=== PATIENT | female | born 1935 | race Caucasian/White ===

== ENCOUNTER 2016-11-22 07:06 | Outpatient (CLI) | payer MEDICARE ==
[2016-11-22 10:48] LABS: BASOPHILS # (AUTO) 0.1 10^3/uL (0.0-0.1); BASOPHILS % (AUTO) 1.2 %; EOSINOPHILS # (AUTO) 0.2 10^3/uL (0.0-0.7); EOSINOPHILS % (AUTO) 3.7 %; HGB - HEMOGLOBIN 12.2 g/dL (12.0-16.0); LYMPHOCYTES # (AUTO) 0.8 10^3/uL (1.5-3.5); LYMPHOCYTES % (AUTO) 14.7 %; MEAN CORPUSCULAR HGB CONC 33.9 g/dL (32.0-36.0); MEAN CORPUSCULAR VOLUME 88.6 fL (81.0-99.0); MEAN PLATELET VOLUME 8.3 fL (7.9-10.8); MONOCYTES # (AUTO) 0.7 10^3/uL (0.0-1.0); MONOCYTES % (AUTO) 12.1 %; NEUTROPHILS # (AUTO) 3.7 10^3/uL (1.5-6.6); NEUTROPHILS % (AUTO) 68.3 %; RED BLOOD COUNT 4.07 10^6/uL (4.20-5.40); RED CELL DISTRIBUTION WIDTH 13.4 % (12.0-15.0); UNCORRECTED WHITE BLOOD COUNT 5.5 x10^3/uL; WHITE BLOOD COUNT 5.5 x10^3/uL (4.8-10.8)
[2016-11-22 11:06] LABS: ALBUMIN/GLOBULIN RATIO 1.3 (1.0-2.2); BILIRUBIN,TOTAL 0.5 mg/dL (0.2-1.0); BUN - BLOOD UREA NITROGEN 17 mg/dL (6-20); CALCIUM 9.8 mg/dL (8.5-10.3); CARBON DIOXIDE - CO2 27 mmol/L (21-32); CHLORIDE 105 mmol/L (101-111); CHOL/HDL RATIO 2.1 (<4.4); CHOLESTEROL 161 mg/dL; CREATININE 0.8 mg/dL (0.4-1.0); GFR - MDRD 69 (>89); GLUCOSE 106 mg/dL (70-100); HDL CHOLESTEROL 76 mg/dL; LDL/HDL RATIO 0.9 (<4.4); POTASSIUM 3.9 mmol/L (3.5-5.0); SODIUM 140 mmol/L (135-145); TOTAL PROTEIN 7.3 g/dL (6.7-8.2); TRIGLYCERIDES 80 mg/dL; VLDL CHOLESTEROL 16 mg/dL
[2016-11-23 08:03] LABS: TEST RESULT REPORT (())
== END 2016-11-22 07:07 | disposition home or self-care (01) ==
LOC: LAB.F 07:06
PROVIDERS: ATTEND Family Medicine
DX: Z00.00 Encounter for general adult medical examination without abnormal findings (principal); I10 Essential (primary) hypertension; E55.9 Vitamin D deficiency, unspecified; R53.83 Other fatigue
CPT/HCPCS: 36415; 80053; 80061; 81599; 82306; 85025

== ENCOUNTER 2017-01-10 13:06 | Outpatient (CLI) | payer MEDICARE ==
[2017-01-10 19:29] LABS: BILIRUBIN,URINE NEGATIVE (NEGATIVE); PH,URINE 6.5 PH (5.0-7.5)
[2017-01-10 20:42] LABS: UR CULTURE IF IND INDICATED
== END 2017-01-10 13:07 | disposition home or self-care (01) ==
LOC: LAB.F 13:06
PROVIDERS: ATTEND Physician Assistant Medical
DX: R53.83 Other fatigue (principal)
CPT/HCPCS: 36415; 81001; 84443; 87086

== ENCOUNTER 2017-04-20 15:14 | Outpatient (CLI) | payer MEDICARE | END 2017-04-20 15:15 | disposition home or self-care (01) | LOC: LAB.R 15:14 | PROVIDERS: ATTEND Internal Medicine | DX: N30.00 Acute cystitis without hematuria (principal) | CPT/HCPCS: 87086 ==

== ENCOUNTER 2017-10-25 14:16 | Outpatient (CLI) | payer MEDICARE | END 2017-10-25 14:17 | disposition home or self-care (01) | LOC: LAB.R 14:16 | PROVIDERS: ATTEND Family Medicine | DX: N39.0 Urinary tract infection, site not specified (principal) | CPT/HCPCS: 87077; 87086 ==

== ENCOUNTER 2017-11-06 09:45 | Outpatient (CLI) | payer MEDICARE ==
[2017-11-06 17:34] LABS: BILIRUBIN,URINE NEGATIVE (NEGATIVE); GLUCOSE, URINE (UA) NEGATIVE (NEGATIVE); KETONES,URINE (UA) NEGATIVE (NEGATIVE); LEUKOCYTE ESTERASE, URINE SMALL (NEGATIVE); NITRITE,URINE NEGATIVE (NEGATIVE); OCCULT BLOOD,URINE NEGATIVE (NEGATIVE); PH,URINE 5.5 PH (5.0-7.5); PROTEIN,URINE NEGATIVE (NEGATIVE); UROBILINOGEN,URINE 0.2 (NORMAL) E.U./dL (NORMAL)
[2017-11-06 17:35] LABS: CLARITY,URINE HAZY (CLEAR)
[2017-11-06 18:49] LABS: BACTERIA,URINE Few /HPF (None Seen); CRYSTALS,URINE 11-25 Ca Oxalate /LPF; RBC,URINE None Seen /HPF (0-5); SQUAMOUS EPITHELIAL CELL,UR MANY Squamous (<= Few)
== END 2017-11-06 09:46 | disposition home or self-care (01) ==
LOC: LAB.F 09:45
PROVIDERS: ATTEND Physician Assistant Medical
DX: N39.0 Urinary tract infection, site not specified (principal)
CPT/HCPCS: 81001; 87086

== ENCOUNTER 2018-01-08 11:08 | Outpatient (CLI) | payer MEDICARE ==
[2018-01-08 17:47] LABS: BASOPHILS # (AUTO) 0.1 10^3/uL (0.0-0.1); EOSINOPHILS # (AUTO) 0.1 10^3/uL (0.0-0.7); EOSINOPHILS % (AUTO) 1.6 %; HGB - HEMOGLOBIN 12.1 g/dL (12.0-16.0); LYMPHOCYTES # (AUTO) 0.6 10^3/uL (1.5-3.5); LYMPHOCYTES % (AUTO) 10.2 %; MEAN CORPUSCULAR HEMOGLOBIN 30.5 pg (27.0-31.0); MEAN CORPUSCULAR HGB CONC 32.9 g/dL (32.0-36.0); MEAN CORPUSCULAR VOLUME 92.6 fL (81.0-99.0); MEAN PLATELET VOLUME 8.4 fL (7.9-10.8); MONOCYTES # (AUTO) 0.6 10^3/uL (0.0-1.0); MONOCYTES % (AUTO) 10.5 %; NEUTROPHILS # (AUTO) 4.2 10^3/uL (1.5-6.6); NEUTROPHILS % (AUTO) 76.7 %; PLT - PLATELET COUNT 201 10^3/uL (130-450); RED BLOOD COUNT 3.97 10^6/uL (4.20-5.40); RED CELL DISTRIBUTION WIDTH 14.2 % (12.0-15.0); WHITE BLOOD COUNT 5.5 x10^3/uL (4.8-10.8)
[2018-01-08 18:35] LABS: ALBUMIN 4.1 g/dL (3.2-5.5); ALBUMIN/GLOBULIN RATIO 1.3 (1.0-2.2); BILIRUBIN,TOTAL 0.4 mg/dL (0.2-1.0); CALCIUM 9.5 mg/dL (8.5-10.3); CREATININE 0.7 mg/dL (0.4-1.0); TOTAL PROTEIN 7.2 g/dL (6.7-8.2)
== END 2018-01-08 11:09 | disposition home or self-care (01) ==
LOC: LAB.F 11:08
PROVIDERS: ATTEND Physician Assistant Medical
DX: I10 Essential (primary) hypertension (principal); E55.9 Vitamin D deficiency, unspecified; R53.83 Other fatigue
CPT/HCPCS: 36415; 80053; 82306; 84443; 85025

== ENCOUNTER 2018-01-15 09:08 | Outpatient (CLI) | payer MEDICARE ==
--- NOTE | 2018-01-15 12:07 | DEXA Report ---
Procedure Date: 01/15/2018 Accession Number: [id number] / [id number] Procedure: DEX - Dexa Spine and/or Hip CPT Code: FULL RESULT: EXAM: Dexa Spine and/or Hip DATE: 01/15/2018 10:55 AM CLINICAL HISTORY: ENCOUNTER FOR SCREENING FOR OSTEOPOROSIS,AORTIC ST TECHNIQUE: Dual energy x-ray absorptiometry (DXA) was performed on a [employer] System. Regions measured are the AP Spine, femoral neck, and if needed forearm. COMPARISON: None. In accordance with the International Society for Clinical Densitometry (ISCD) guidelines, data from previous exams may be reanalyzed using current recommendations and techniques. This is done to allow a more accurate basis for comparison with the current study. FINDINGS: The data for the lumbar spine is as follows: BMD (g/cm/cm) T-SCORE Z-SCORE REGION L1 0.915 -1.8 -0.4 L2 1.024 -1.5 -0.1 L3 1.115 -0.7 0.7 L4 1.190 -0.1 1.3 TOTAL 1.081 -0.8 0.5 NOTE: All evaluable vertebrae are used for classification The data for the hip is as follows: BMD (g/cm/cm) T-SCORE Z-SCORE REGION Neck 0.751 -2.1 -0.1 TOTAL 0.817 -1.5 0.3 NOTE: The femoral neck or total proximal femur, whichever is lowest, is used for classification. IMPRESSION: THE WHO CLASSIFICATION BASED ON THE INTERNATIONAL REFERENCE STANDARD IS OSTEOPOROSIS. THE FRACTURE RISK IS INCREASED. RECOMMENDATION: Patients with diagnosis of osteoporosis or osteopenia should have regular bone mineral density assessment. For those eligible for Medicare, routine testing is allowed once every 2 years. Testing frequency can be increased for patients who have rapidly progressing disease or for those who are receiving medical therapy to restore bone mass. COMMENT: World Health Organization (WHO) definitions for osteoporosis and osteopenia: NORMAL BMD: T-score at -1.0 or higher, fracture risk is low OSTEOPENIA BMD: T-score between -1.0 and -2.5, fracture risk is increased. OSTEOPOROSIS BMD: T-score at -2.5 or lower, fracture risk is high. National Osteoporosis Foundation recommends: 1. Obtain adequate dietary calcium (at least 1200 mg per day) and vitamin D (400-800 international units per day). 2. Participate, as appropriate, in regular weightbearing and muscle-strengthening exercise. 3. Avoid tobacco use and reduce alcohol and caffeine intake. 4. For more detailed information see the website at www.NOF.org.
== END 2018-01-15 09:09 | disposition home or self-care (01) ==
LOC: DI 09:08
PROVIDERS: ATTEND Physician Assistant Medical
DX: Z13.820 Encounter for screening for osteoporosis (principal); M81.0 Age-related osteoporosis without current pathological fracture; I35.0 Nonrheumatic aortic (valve) stenosis; R53.83 Other fatigue
CPT/HCPCS: 77080; 93306

== ENCOUNTER 2019-01-01 07:57 | Outpatient (CLI) | payer MEDICARE ==
[2019-01-01 18:10] LABS: BASOPHILS # (AUTO) 0.1 10^3/uL (0.0-0.1); BASOPHILS % (AUTO) 1.3 %; EOSINOPHILS # (AUTO) 0.1 10^3/uL (0.0-0.7); HGB - HEMOGLOBIN 12.1 g/dL (12.0-16.0); LYMPHOCYTES # (AUTO) 0.6 10^3/uL (1.5-3.5); LYMPHOCYTES % (AUTO) 10.7 %; MEAN CORPUSCULAR HEMOGLOBIN 29.5 pg (27.0-31.0); MEAN CORPUSCULAR HGB CONC 30.5 g/dL (32.0-36.0); MEAN CORPUSCULAR VOLUME 96.8 fL (81.0-99.0); MEAN PLATELET VOLUME 10.5 fL (7.9-10.8); MONOCYTES # (AUTO) 0.6 10^3/uL (0.0-1.0); MONOCYTES % (AUTO) 11.6 %; NEUTROPHILS # (AUTO) 3.9 10^3/uL (1.5-6.6); NEUTROPHILS % (AUTO) 75.2 %; PLT - PLATELET COUNT 201 10^3/uL (130-450); RED CELL DISTRIBUTION WIDTH 13.6 % (12.0-15.0); WHITE BLOOD COUNT 5.2 x10^3/uL (4.8-10.8)
[2019-01-01 19:02] LABS: ALBUMIN 4.7 g/dL (3.2-5.5); ALBUMIN/GLOBULIN RATIO 1.5 (1.0-2.2); BILIRUBIN,TOTAL 0.7 mg/dL (0.2-1.0); CREATININE 0.9 mg/dL (0.4-1.0); TOTAL PROTEIN 7.9 g/dL (6.7-8.2)
== END 2019-01-01 07:58 | disposition home or self-care (01) ==
LOC: LAB.F 07:57
PROVIDERS: ATTEND Physician Assistant Medical
DX: E53.8 Deficiency of other specified B group vitamins (principal); I10 Essential (primary) hypertension
CPT/HCPCS: 36415; 80053; 82607; 85025

== ENCOUNTER 2019-02-12 10:17 | Outpatient (CLI) | payer MEDICARE ==
--- NOTE | 2019-02-13 15:26 | XRAY Report ---
Reason: LEG NUMBNESS,RIGHT Procedure Date: 02/12/2019 Accession Number: [id number] / [id number] Procedure: XR - Lumbar Spine Complete CPT Code: FULL RESULT: EXAM: LUMBOSACRAL SPINE RADIOGRAPHY EXAM DATE: 02/12/2019 10:55 AM. CLINICAL HISTORY: Leg numbness, right. COMPARISONS: None. TECHNIQUE: 3 views. FINDINGS: Alignment: Approximately 10 degrees of dextroscoliosis apex L2-L3 disk level. Bones: Five [id number] lumbar vertebral bodies are present. No fractures or bone lesions. Disks: There is mild to moderate anterior and lateral marginal osteophytes at all disk levels. Mild disk space narrowing at L4-L5. Facets: Mild facet arthrosis on the right at L5-S1 Sacroiliac Joints: Unremarkable. Soft Tissues: Normal. The visualized bowel gas pattern is normal. IMPRESSION: Multilevel degenerative disk changes as described. No fracture. RADIA
== END 2019-02-12 10:18 | disposition home or self-care (01) ==
LOC: DI 10:17
PROVIDERS: ATTEND Registered Nurse
DX: M51.36 Other intervertebral disc degeneration, lumbar region (principal); M47.817 Spondylosis without myelopathy or radiculopathy, lumbosacral region
CPT/HCPCS: 72110

== ENCOUNTER 2020-11-11 22:21 | Emergency (ER) | payer MEDICARE ==
[2020-11-11] MEDS ORDERED: OXYMETAZOLINE HCL 100 SPRAYS BOTTLE NAS STA (22:38)
[2020-11-12 00:07] VITALS: BP 163/67
--- NOTE | 2020-11-12 00:17 | ED Physician Documentation ---
PD HPI HEENT - Stated complaint Stated Complaint: NOSE BLEED - Chief complaint Chief Complaint: Heent - History obtained from History obtained from: Patient, Family - History of Present Illness Timing - onset: How many weeks ago (2) Timing - duration: Weeks (2) Timing - details: Gradual onset, Still present, Waxing and waning Location: Nose Improves: Other (pressure) Associated symptoms: Congestion, Rhinorrhea. No: Fever, Trismus, Unable to swallow, Swollen nodes, Facial swelling, Headache, Cough Similar symptoms before: Has not had sx before Recently seen: Not recently seen - Additional information Additional information: Previously well 85-year-old female has developed a nosebleed and she has had this nosebleed off and on for the past week and today she was unable to get this bleeding to stop and she is come to the emergency department for treatment. At the time of my evaluation her bleeding has stopped. She does have a history of hypertension. Review of Systems Constitutional: denies: Fever Eyes: denies: Decreased vision Ears: denies: Ear pain Nose: reports: Rhinorrhea / runny nose, Congestion, Epistaxis Throat: denies: Sore throat Cardiac: denies: Chest pain / pressure, Palpitations Respiratory: denies: Dyspnea, Cough GI: denies: Abdominal Pain, Nausea, Vomiting : denies: Dysuria, Frequency PD PAST MEDICAL HISTORY - Past Medical History Past Medical History: Yes Cardiovascular: Hypertension Respiratory: None Endocrine/Autoimmune: None GI: GERD : Chronic bladder infection HEENT: Other Psych: None Musculoskeletal: None Derm: None - Past Surgical History 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, 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 - Present Medications Home Medications: Ambulatory Orders Medication Instructions Recorded Confirmed Lisinopril 1 mg ORAL DAILY 07/30/14 07/31/14 Ascorbic Acid [Vitamin C] 1,000 mg PO DAILY 07/31/14 07/31/14 Cranberry 500 mg PO DAILY 07/31/14 07/31/14 Multivitamin [Multivitamins] 1 each PO DAILY 07/31/14 07/31/14 - Allergies Allergies/Adverse Reactions: Allergies Allergy/AdvReac Type Severity Reaction Status Date / Time Penicillins AdvReac Unknown Verified 07/30/14 14:31 - Social History Does the pt smoke?: No Smoking Status: Never smoker Does the pt drink ETOH?: No Does the pt have substance abuse?: No - Immunizations Immunizations are current?: Yes - POLST Patient has POLST: No PD ED PE NORMAL - Vitals Vital signs reviewed: Yes (Hypertensive seems artifactually elevated diastolic ) - General General: No acute distress, Well developed/nourished - HEENT HEENT: Atraumatic, PERRL, EOMI, Other (There does appear to be bleeding from the anterior septum inferiorly on the right side that is now resolved and there is only the appearance of a blush to superficially denuded mucosa.) - Respiratory Respiratory: No respiratory distress - Derm Derm: Normal color, Warm and dry, No rash - Extremities Extremities: No deformity, No edema - 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, No motor deficit, No sensory deficit, Normal speech Eye Opening: Spontaneous Motor: Obeys Commands Verbal: Oriented GCS Score: 15 - Psych Psych: Normal mood, Normal affect Results - Vitals Vitals: Vital Signs - 24 hr 11/11/20 11/12/20 22:29 00:06 Temperature 36.3 C L 36.5 C Heart Rate 84 68 Respiratory 17 16 Rate Blood Pressure 169/143 H 163/67 H O2 Saturation 99 97 Oxygen O2 Source Room air PD MEDICAL DECISION MAKING - ED course Complexity details: considered differential, d/w patient, d/w family ED course: 85-year-old female with epistaxis from the right nares has bleeding controlled with the time she presents to the emergency department she is given oxymetazoline and reexamined and there are no additional findings. The patient has resolution of her bleeding here in the emergency department and no further aggressive treatment is administered. She came into the emergency department with a triage diastolic blood pressure of 143 this appears erroneous as subsequent readings showed a diastolic of 67 . Departure - Departure Disposition: 01 Home, Self Care Clinical Impression: Epistaxis Condition: Stable Instructions: ED Nosebleed Follow-Up: Katharina Mauricio ARNP [Credentialed Staff Provider] - Comments: Daya, today it appears your nose is bleeding from the anterior septum. This is just inside the nose and it looks like there is some raw mucosa. This is likely secondary to nasal allergies. The recommendation is to put a slight amount of Vaseline over this area and if you develop bleeding again use the oxymetazoline on that you have been given and clamp your nose. If you are unable to control your bleeding we are here 24 hours/day. Discharge Date/Time: 11/12/20 00:19
== END 2020-11-12 00:19 | disposition home or self-care (01) ==
LOC: ED 22:21
DX: R04.0 Epistaxis (principal); I10 Essential (primary) hypertension
CPT/HCPCS: 99282; 99284; A9270

== ENCOUNTER 2020-12-04 07:54 | Outpatient (CLI) | payer MEDICARE ==
[2020-12-04 14:48] LABS: BASOPHILS % (AUTO) 1.9 %; EOSINOPHILS % (AUTO) 1.9 %; HCT - HEMATOCRIT 37.6 % (37.0-47.0); HGB - HEMOGLOBIN 11.7 g/dL (12.0-16.0); LYMPHOCYTES % (AUTO) 13.9 %; MEAN CORPUSCULAR HEMOGLOBIN 29.9 pg (27.0-31.0); MEAN CORPUSCULAR HGB CONC 31.1 g/dL (32.0-36.0); MEAN CORPUSCULAR VOLUME 96.2 fL (81.0-99.0); MEAN PLATELET VOLUME 10.6 fL (7.9-10.8); MONOCYTES % (AUTO) 11.6 %; NEUTROPHILS % (AUTO) 70.7 %; PLT - PLATELET COUNT 165 10^3/uL (130-450); RED BLOOD COUNT 3.91 10^6/uL (4.20-5.40); RED CELL DISTRIBUTION WIDTH 13.5 % (12.0-15.0); WHITE BLOOD COUNT 4.2 x10^3/uL (4.8-10.8)
[2020-12-04 15:12] LABS: ABNORMAL LYMPHS % (MANUAL) 0 %
[2020-12-04 15:21] LABS: ALBUMIN 4.6 g/dL (3.2-5.5); ALBUMIN/GLOBULIN RATIO 1.6 (1.0-2.2); ALKALINE PHOSPHATASE 54 IU/L (42-121); ALT ALANINE AMINOTRANSFERASE 20 IU/L (10-60); AST ASPARTATE AMINOTRANSFERASE 26 IU/L (10-42); BILIRUBIN,TOTAL 0.8 mg/dL (0.2-1.0); BUN - BLOOD UREA NITROGEN 16 mg/dL (6-20); CALCIUM 9.8 mg/dL (8.5-10.3); CARBON DIOXIDE - CO2 29 mmol/L (21-32); CHLORIDE 105 mmol/L (101-111); CHOLESTEROL 180 mg/dL; CREATININE 0.7 mg/dL (0.4-1.0); GFR - MDRD 80 (>89); GLUCOSE 101 mg/dL (70-100); HDL CHOLESTEROL 90 mg/dL; LDL CHOLESTEROL,CALCULATED 74 mg/dL; LDL/HDL RATIO 0.8 (<4.4); SODIUM 142 mmol/L (135-145); TOTAL PROTEIN 7.4 g/dL (6.7-8.2); TRIGLYCERIDES 80 mg/dL; VLDL CHOLESTEROL 16 mg/dL
[2020-12-04 15:32] LABS: BAND NEUTROPHILS % (MANUAL) 2 %; EOSINOPHILS # (MANUAL) 0.2 10^3/uL (0-0.7); LYMPHOCYTES # (MANUAL) 0.7 10^3/uL (1.5-3.5); LYMPHOCYTES % (MANUAL) 16 %; MONOCYTES # (MANUAL) 0.6 10^3/uL (0.0-1.0); NEUTROPHILS # (MANUAL) 2.7 10^3/uL (1.5-6.6)
[2020-12-04 15:59] LABS: PLATELET ESTIMATE, MANUAL NORMAL (130-450,000) (NORMAL); PLATELET MORPHOLOGY NORMAL APPEARANCE (NORMAL); RBC MORPHOLOGY (MULTIPLE) NORMAL APPEARANCE (NORMAL)
[2020-12-04 16:00] LABS: DIFFERENTIAL COMMENT MANUAL DIFFERENTIAL; WBC MORPHOLOGY (MULTIPLE) NORMAL APPEARANCE (NORMAL)
== END 2020-12-04 07:55 | disposition home or self-care (01) ==
LOC: LAB.S 07:54
PROVIDERS: ATTEND Internal Medicine
DX: I10 Essential (primary) hypertension (principal)
CPT/HCPCS: 36415; 80053; 80061; 83721; 85025

== ENCOUNTER 2020-12-24 09:15 | Outpatient (CLI) | payer MEDICARE ==
[2020-12-24 20:09] LABS: FECAL OCCULT BLOOD (FIT) NEGATIVE (NEGATIVE)
== END 2020-12-24 23:59 | disposition home or self-care (01) ==
LOC: LAB.S 09:15
PROVIDERS: ATTEND Internal Medicine
DX: Z12.11 Encounter for screening for malignant neoplasm of colon (principal)
CPT/HCPCS: 82274

== ENCOUNTER 2021-01-25 18:50 | Outpatient (CLI) | payer MEDICARE ==
[2021-01-25 20:12] LABS: BASOPHILS # (AUTO) 0.1 10^3/uL (0.0-0.1); BASOPHILS % (AUTO) 0.9 %; EOSINOPHILS # (AUTO) 0.4 10^3/uL (0.0-0.7); EOSINOPHILS % (AUTO) 6.5 %; HCT - HEMATOCRIT 36.3 % (37.0-47.0); HGB - HEMOGLOBIN 11.3 g/dL (12.0-16.0); LYMPHOCYTES # (AUTO) 0.7 10^3/uL (1.5-3.5); LYMPHOCYTES % (AUTO) 10.3 %; MEAN CORPUSCULAR HEMOGLOBIN 29.5 pg (27.0-31.0); MEAN CORPUSCULAR HGB CONC 31.1 g/dL (32.0-36.0); MEAN CORPUSCULAR VOLUME 94.8 fL (81.0-99.0); MEAN PLATELET VOLUME 10.3 fL (7.9-10.8); MONOCYTES # (AUTO) 0.7 10^3/uL (0.0-1.0); MONOCYTES % (AUTO) 10.6 %; NEUTROPHILS # (AUTO) 4.6 10^3/uL (1.5-6.6); NEUTROPHILS % (AUTO) 71.5 %; PLT - PLATELET COUNT 191 10^3/uL (130-450); RED BLOOD COUNT 3.83 10^6/uL (4.20-5.40); RED CELL DISTRIBUTION WIDTH 13.4 % (12.0-15.0); WHITE BLOOD COUNT 6.5 x10^3/uL (4.8-10.8)
== END 2021-01-25 23:59 | disposition home or self-care (01) ==
LOC: LAB.S 18:50
PROVIDERS: ATTEND Physician Assistant Medical
DX: R04.0 Epistaxis (principal); R42 Dizziness and giddiness
CPT/HCPCS: 36415; 85025

== ENCOUNTER 2021-01-26 00:42 | Outpatient (CLI) | payer MEDICARE | END 2021-01-26 00:43 | disposition critical access hospital (66) | LOC: EMS 00:42 | DX: R04.0 Epistaxis (principal) | CPT/HCPCS: A0425; A0429 ==

== ENCOUNTER 2021-01-26 01:24 | Emergency (ER) | payer MEDICARE ==
[2021-01-26] MEDS ORDERED: OXYMETAZOLINE HCL 100 SPRAYS BOTTLE NAS STA (01:30)
[2021-01-26] MEDS ORDERED: BACITRACIN ZINC OINT 1 PACKET TOP STA (01:41)
[2021-01-26] MEDS ORDERED: TRANEXAMIC ACID 1,000 MG/10 ML VIAL NAS STA (01:42)
[2021-01-26] MEDS ORDERED: SILVER NITRATE APPLICATOR TOP STA (02:04)
[2021-01-26] MEDS ORDERED: LIDOCAINE JELLY 2% 6 ML JEL.PF.APP TOP STA (02:05)
--- NOTE | 2021-01-26 02:26 | ED Physician Documentation ---
History of Present Illness - Stated complaint Stated Complaint: EPISTAXIS - Chief complaint Chief Complaint: Heent - History obtained from History obtained from: Patient - Additonal information Additional information: 85-year-old woman brought in by EMS for recurrent epistaxis over the past 2 years, worsening this week. patient was seen in [facility] and had nasal cautery. they attempted rhinorocket placement but she could not tolerate therefore it was taken out. patient went home and then had recurrence of nosebleed so called 911. denies trauma, blood thinners, nose picking. 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 - Present Medications Home Medications: Ambulatory Orders Medication Instructions Recorded Confirmed Lisinopril 1 mg ORAL DAILY 07/30/14 07/31/14 Ascorbic Acid [Vitamin C] 1,000 mg PO DAILY 07/31/14 07/31/14 Cranberry 500 mg PO DAILY 07/31/14 07/31/14 Multivitamin [Multivitamins] 1 each PO DAILY 07/31/14 07/31/14 Cholecalciferol (Vitamin D3) mg ORAL DAILY 01/26/21 [Vitamin D3] - Allergies Allergies/Adverse Reactions: Allergies Allergy/AdvReac Type Severity Reaction Status Date / Time Penicillins AdvReac Unknown Verified 01/26/21 01:50 - Social History Does the pt smoke?: No Smoking Status: Never smoker Does the pt drink ETOH?: No Does the pt have substance abuse?: No - Immunizations Immunizations are current?: Yes - POLST Patient has POLST: No PD ED PE NORMAL - Vitals Vital signs reviewed: Yes - General General: Alert and oriented X 3, No acute distress, Well developed/nourished - HEENT HEENT: Atraumatic, PERRL, EOMI, Other (R nare with dried blood. L nare clear. no NSH) - Derm Derm: Normal color, Warm and dry - Neuro Neuro: Alert and oriented X 3 - Psych Psych: Normal mood, Normal affect Results - Vitals Vitals: Vital Signs - 24 hr 01/26/21 01:41 Temperature 36.1 C L Heart Rate 79 Respiratory 18 Rate Blood Pressure 160/57 H O2 Saturation 97 Oxygen O2 Source Oxymask Procedures - Epistaxis Site: Right, Anterior Preparation: Afrin, Clamp / pressure applied Treatment: Ant post rhinorocket Other: Observed - no bleeding, Pt tolerated well, O2 sat WNL, Referred to ENT PD MEDICAL DECISION MAKING - ED course ED course: Epistaxis stopped with direct pressure and Afrin nasal spray. update: restarted. R rhinorocket placed with relief of bleeding. return precautions given. patient will f/u for removal tomorrow. Departure - Departure Disposition: 01 Home, Self Care Clinical Impression: Epistaxis Condition: Stable Instructions: ED Nosebleed Follow-Up: DEN CUELLAR MD [Physician No Access] - Comments: You are seen in the emergency department for a nosebleed. A Rhino Rocket was placed in your right nose that needs to be taken out on January 27 at the [place] [facility]in [facility] or another urgent care. Please return to the emergency department if you have new or worsening symptoms or other concerns prior to that.
[2021-01-26 02:36] VITALS: BP 160/57
== END 2021-01-26 03:43 | disposition home or self-care (01) ==
LOC: EDUNIT# → ED 01:24 → SUPCPDRO 01:24 → ED 03:43
DX: R04.0 Epistaxis (principal); I10 Essential (primary) hypertension
CPT/HCPCS: 30901; 99283; A9270

== ENCOUNTER 2021-02-02 08:59 | Outpatient (CLI) | payer MEDICARE | END 2021-02-02 09:00 | disposition home or self-care (01) | LOC: DI 08:59 | PROVIDERS: ATTEND Internal Medicine | DX: I35.0 Nonrheumatic aortic (valve) stenosis (principal); I27.20 Pulmonary hypertension, unspecified | CPT/HCPCS: 93306 ==

== ENCOUNTER 2021-02-20 11:51 | Outpatient (CLI) | payer MEDICARE ==
[2021-02-20 15:22] LABS: PT - PROTHROMBIN TIME 11.4 secs (9.9-12.6)
== END 2021-02-20 11:52 | disposition home or self-care (01) ==
LOC: LAB.S 11:51
PROVIDERS: ATTEND Internal Medicine
DX: A07.1 Giardiasis [lambliasis] (principal); R23.8 Other skin changes
CPT/HCPCS: 36415; 85610

== ENCOUNTER 2021-02-22 13:00 | Outpatient (CLI) | payer MEDICARE | END 2021-02-22 23:59 | disposition home or self-care (01) | LOC: LAB.S 13:00 | PROVIDERS: ATTEND Internal Medicine | DX: A07.1 Giardiasis [lambliasis] (principal) | CPT/HCPCS: 87329 ==

== ENCOUNTER 2021-04-19 13:00 | Outpatient (CLI) | payer MEDICARE ==
[2021-04-19 20:46] LABS: BILIRUBIN,URINE NEGATIVE (NEGATIVE); GLUCOSE, URINE (UA) NEGATIVE (NEGATIVE); KETONES,URINE (UA) NEGATIVE (NEGATIVE); LEUKOCYTE ESTERASE, URINE SMALL (NEGATIVE); NITRITE,URINE NEGATIVE (NEGATIVE); OCCULT BLOOD,URINE NEGATIVE (NEGATIVE); PROTEIN,URINE NEGATIVE (NEGATIVE); UROBILINOGEN,URINE 0.2 (NORMAL) E.U./dL (NORMAL)
[2021-04-19 20:48] LABS: CLARITY,URINE HAZY (CLEAR)
[2021-04-19 20:56] LABS: RBC,URINE 0-5 /HPF (0-5); SQUAMOUS EPITHELIAL CELL,UR FEW Squamous (<= Few)
[2021-04-19 20:57] LABS: BACTERIA,URINE Few /HPF (None Seen)
== END 2021-04-19 23:59 | disposition home or self-care (01) ==
LOC: LAB.S 13:00
PROVIDERS: ATTEND Emergency Medicine
DX: R30.0 Dysuria (principal)
CPT/HCPCS: 81001; 87086

== ENCOUNTER 2021-04-23 10:12 | Emergency (ER) | payer MEDICARE ==
[2021-04-23 13:05] LABS: BASOPHILS # (AUTO) 0.1 10^3/uL (0.0-0.1); BASOPHILS % (AUTO) 1.7 %; EOSINOPHILS # (AUTO) 0.1 10^3/uL (0.0-0.7); HCT - HEMATOCRIT 37.5 % (37.0-47.0); HGB - HEMOGLOBIN 11.6 g/dL (12.0-16.0); LYMPHOCYTES # (AUTO) 0.6 10^3/uL (1.5-3.5); MEAN CORPUSCULAR HEMOGLOBIN 29.5 pg (27.0-31.0); MEAN CORPUSCULAR HGB CONC 30.9 g/dL (32.0-36.0); MEAN CORPUSCULAR VOLUME 95.4 fL (81.0-99.0); MEAN PLATELET VOLUME 9.8 fL (7.9-10.8); MONOCYTES # (AUTO) 0.5 10^3/uL (0.0-1.0); MONOCYTES % (AUTO) 10.5 %; NEUTROPHILS # (AUTO) 3.4 10^3/uL (1.5-6.6); NEUTROPHILS % (AUTO) 73.6 %; PLT - PLATELET COUNT 160 10^3/uL (130-450); RED BLOOD COUNT 3.93 10^6/uL (4.20-5.40); RED CELL DISTRIBUTION WIDTH 13.7 % (12.0-15.0); WHITE BLOOD COUNT 4.6 x10^3/uL (4.8-10.8)
[2021-04-23 13:19] LABS: ALBUMIN 4.6 g/dL (3.2-5.5); ALBUMIN/GLOBULIN RATIO 1.4 (1.0-2.2); BILIRUBIN,TOTAL 0.9 mg/dL (0.2-1.0); CALCIUM 9.9 mg/dL (8.5-10.3); CREATININE 0.8 mg/dL (0.4-1.0); POTASSIUM 4.3 mmol/L (3.5-5.0); TOTAL PROTEIN 7.8 g/dL (6.7-8.2)
[2021-04-23 14:41] LABS: BILIRUBIN,URINE NEGATIVE (NEGATIVE); GLUCOSE, URINE (UA) NEGATIVE (NEGATIVE); KETONES,URINE (UA) NEGATIVE (NEGATIVE); LEUKOCYTE ESTERASE, URINE NEGATIVE (NEGATIVE); NITRITE,URINE NEGATIVE (NEGATIVE); OCCULT BLOOD,URINE TRACE-INTA (NEGATIVE); PROTEIN,URINE NEGATIVE (NEGATIVE); UROBILINOGEN,URINE 0.2 (NORMAL) E.U./dL (NORMAL)
[2021-04-23 14:42] LABS: CLARITY,URINE CLEAR (CLEAR)
--- NOTE | 2021-04-23 14:48 | ED Physician Documentation ---
History of Present Illness - Stated complaint Stated Complaint: FEMALE - Chief complaint Chief Complaint: UTI - Additonal information Additional information: 86-year-old female presents the emergency department for evaluation of concerns that she may have a urinary tract infection that is not responding to treatment as well as reported lower abdominal discomfort. She states that she Had developed some lower abdominal tenderness as well as some dysuria about 4 days ago. She was seen by Dr. Mortensen who ordered a urinalysis. She was started on a sulfa antibiotic on the . About an hour after taking it she had diarrhea therefore she stopped taking the sulfa and began taking amoxicillin 500 mg 3 times a day. Since then she feels like the dysuria is better but she still continues to have some softer nonbloody watery stools. She is reporting difficulty following up with her primary care provider. She does visit this emergency department with her who is also seeking care. She denies fevers, flank pain, vomiting CVA tenderness. No history of pyelonephritis. Patient's daughter states mom always gets urinary tract infections. Review of Systems Constitutional: denies: Fever, Chills Throat: reports: Reviewed and negative Cardiac: reports: Reviewed and negative Respiratory: reports: Reviewed and negative GI: reports: Abdominal Pain, Diarrhea. 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 - Present Medications Home Medications: Ambulatory Orders Medication Instructions Recorded Confirmed Lisinopril 1 mg ORAL DAILY 07/30/14 07/31/14 Ascorbic Acid [Vitamin C] 1,000 mg PO DAILY 07/31/14 07/31/14 Cranberry 500 mg PO DAILY 07/31/14 07/31/14 Multivitamin [Multivitamins] 1 each PO DAILY 07/31/14 07/31/14 Cholecalciferol (Vitamin D3) mg ORAL DAILY 01/26/21 [Vitamin D3] - Allergies Allergies/Adverse Reactions: Allergies Allergy/AdvReac Type Severity Reaction Status Date / Time Penicillins AdvReac Unknown Verified 04/23/21 10:28 - Social History Does the pt smoke?: No Smoking Status: Never smoker Does the pt drink ETOH?: No Does the pt have substance abuse?: No - Immunizations Immunizations are current?: Yes - POLST Patient has POLST: No PD ED PE NORMAL - General General: Alert and oriented X 3, No acute distress - HEENT HEENT: PERRL - Cardiac Cardiac: RRR, No murmur - Respiratory Respiratory: No respiratory distress, Clear bilaterally - Abdomen Abdomen: Normal bowel sounds, Soft, Non tender (I am unable to elicit any suprapubic flank or CVA tenderness. No guarding or rebound.) - Derm Derm: Normal color, Warm and dry, No rash - Extremities Extremities: No deformity - Neuro Neuro: Alert and oriented X 3 Eye Opening: Spontaneous Motor: Obeys Commands Verbal: Oriented GCS Score: 15 Results - Vitals Vitals: Vital Signs - 24 hr 04/23/21 10:14 Temperature 36.3 C L Heart Rate 67 Respiratory 16 Rate Blood Pressure 144/42 H O2 Saturation 98 Oxygen O2 Source Room air - Labs Labs: Laboratory Tests 04/23/21 04/23/21 04/23/21 13:00 13:00 13:50 WBC 4.6 L RBC 3.93 L Hgb 11.6 L Hct 37.5 MCV 95.4 MCH 29.5 MCHC 30.9 L RDW 13.7 Plt Count 160 MPV 9.8 Neut # (Auto) 3.4 Lymph # (Auto) 0.6 L [place] # (Auto) 0.5 Eos # (Auto) 0.1 Baso # (Auto) 0.1 Absolute Nucleated RBC 0.00 Nucleated RBC % 0.0 Sodium 140 Potassium 4.3 Chloride 103 Carbon Dioxide 29 Anion Gap 8.0 BUN 17 Creatinine 0.8 Estimated GFR (MDRD) 68 L Glucose 98 Calcium 9.9 Total Bilirubin 0.9 AST 30 ALT 22 Alkaline Phosphatase 56 Total Protein 7.8 Albumin 4.6 Globulin 3.2 Albumin/Globulin Ratio 1.4 Lipase 35 Urine Color YELLOW Urine Clarity CLEAR Urine pH 7.0 Ur Specific [place]aughters 1.015 Urine Protein NEGATIVE Urine Glucose (UA) NEGATIVE Urine Ketones NEGATIVE Urine Occult Blood TRACE-INTA Urine Nitrite NEGATIVE Urine Bilirubin NEGATIVE Urine Urobilinogen 0.2 (NORMAL) Ur Leukocyte Esterase NEGATIVE Ur Microscopic Review NOT INDICATED Urine Culture Comments NOT INDICATED PD MEDICAL DECISION MAKING - ED course Complexity details: reviewed results, re-evaluated patient, considered differential, d/w patient, d/w family ED course: This is a well-appearing 86-year-old female who presents the emergency department for evaluation which she believes is a urinary tract infection as well as diarrhea. Reported urinary discomfort 4 days ago. Was started on a sulfa 2 days ago but after 1 dose developed diarrhea therefore she began taking leftover amoxicillin 500 mg 3 times a day. Her urinary symptoms have improved but she still reports lower abdominal discomfort. On exam she appears remarkably well. No fevers hypotension or tachycardia. I was unable to elicit any abdominal tenderness. Screening labs were obtained and reassuringly there were is no acute abnormality. Her urine specimen was also without signs of infection. This was a catheterized specimen. Urine obtained on the through her primary care provider grew microbial lea likely a contaminant. No new antibiotics are indicated today. I have advised close follow-up with her primary care provider. Given the reassuring exam and labs no emergent CT imaging is indicated today. Return precautions were discussed. Departure - Departure Disposition: Home, Self Care Clinical Impression: Bilateral lower abdominal discomfort Diarrhea Qualifiers: Diarrhea type: unspecified type Qualified Code(s): R19.7 - Diarrhea, unspecified Condition: Stable Record reviewed to determine appropriate education?: Yes Follow-Up: Nehemiah Bai MD [Primary Care Provider] - Comments: Daya you were seen today in the emergency department for concerns of possible urinary tract infection despite taking antibiotics as well as some loose watery stools while taking antibiotics. Today your screening labs including your blood count and chemistry panel are all essentially normal for your age. Your urine sample which was done by catheterization shows no signs of infection. No further antibiotics are necessary at this time. Is important that you continue close follow-up with your primary care provider Dr. Bai. If you feel that you are getting recurrent urinary tract infections they can discuss some outpatient treatment options that may also include referral to a urologist. If at any point you develop fevers, have upper abdominal pain, vomiting or have a return of urinary difficulty or urgency then please return immediately to the ER for a second evaluation.
[2021-04-23 15:12] VITALS: BP 155/88
== END 2021-04-23 15:31 | disposition home or self-care (01) ==
LOC: ED 10:12
DX: R10.32 Left lower quadrant pain (principal); R10.31 Right lower quadrant pain; R19.7 Diarrhea, unspecified; I10 Essential (primary) hypertension
CPT/HCPCS: 36415; 51701; 80053; 81001; 81003; 83690; 85025; 87086; 99282; 99283

== ENCOUNTER 2021-11-01 08:00 | Outpatient (CLI) | payer MEDICARE ==
--- NOTE | 2021-11-01 12:25 | XRAY Report ---
PROCEDURE: Chest 2 View X-Ray INDICATIONS: DECREASED BREATH SOUNDS RIGHT LOWER LOBE TECHNIQUE: 2 view(s) of the chest. COMPARISON: None FINDINGS: Surgical changes and devices: None. Lungs and pleura: Coarsened bibasilar opacities are present. There is trace blunting of the right co stophrenic angle. Mediastinum: Mediastinal contours are normal. Heart size is enlarged. Bones and chest wall: No suspicious bony abnormalities. Soft tissues appear unremarkable. IMPRESSION: Coarsened bibasilar opacities possibly representing dependent change. However, atelectas is versus developing pneumonia cannot be excluded. Trace blunting the right costophrenic angle is pre sent most consistent with mild effusion. Reviewed by: Bernadette Hernandez MD on 11/01/2021 12:24 PM PDT Approved by: Bernadette Hernandez MD on 11/01/2021 12:24 PM PDT Station ID: [id number]
== END 2021-11-01 23:59 | disposition home or self-care (01) ==
LOC: DI.S 08:00
PROVIDERS: ATTEND Physician Assistant Medical
DX: R91.8 Other nonspecific abnormal finding of lung field (principal)